=== PATIENT | male | born 1960 | race Caucasian/White ===

== ENCOUNTER 2021-04-01 05:39 | Observation (INO) ==
[2021-04-01] MEDS ORDERED: ACETAMINOPHEN 500 MG TABLET PO ONE (06:48)
[2021-04-01] MEDS ORDERED: ALBUTEROL 2.5 MG/3 ML NEB RESP TX ONE (06:48)
[2021-04-01] MEDS ORDERED: DIAZEPAM 5 MG TABLET PO ONE (06:48)
[2021-04-01] MEDS ORDERED: GABAPENTIN 400 MG CAPSULE PO ONE (06:48)
[2021-04-01] MEDS ORDERED: FAMOTIDINE 20 MG TABLET PO ONE (06:48)
[2021-04-01] MEDS ORDERED: LACTATED RINGERS 1,000 ML IV SCH (07:00)
[2021-04-01] MEDS ORDERED: LIDOCAINE 2% 5 ML VIAL ONE (07:10)
[2021-04-01] MEDS ORDERED: MIDAZOLAM 2 MG/2 ML VIAL ONE ×2 (07:10→07:44)
[2021-04-01] MEDS ORDERED: propofoL 200 MG/20 ML VIAL IV ONE (07:10)
[2021-04-01] MEDS ORDERED: ETOMIDATE 40 MG/20 ML VIAL IV ONE (07:10)
[2021-04-01] MEDS ORDERED: BUPIVACAINE SPINAL 0.75% 2 ML AMP SPINAL ONE (07:10)
[2021-04-01] MEDS ORDERED: ONDANSETRON 4 MG/2 ML VIAL ONE (07:10)
[2021-04-01] MEDS ORDERED: fentaNYL 100 MCG/2 ML VIAL ONE ×2 (07:10→09:13)
[2021-04-01] MEDS ORDERED: PHENYLEPHRINE 1 MG/10 ML SYRINGE IV ONE (07:12)
[2021-04-01] MEDS ORDERED: TRANEXAMIC ACID 1,000 MG/10 ML VIAL ONE (07:12)
[2021-04-01] MEDS ORDERED: DEXAMETHASONE 4 MG/1 ML VIAL ONE (07:22)
[2021-04-01] MEDS ORDERED: ROPIVACAINE 0.5% 30 ML VIAL ONE (07:22)
[2021-04-01] MEDS ORDERED: LIDOCAINE 1% 5 ML VIAL ONE (07:22)
[2021-04-01 07:25] LABS: Partial Thromboplastin Time 25.6 SECS (23.8-32.1)
[2021-04-01] MEDS ORDERED: BACITRACIN OINT 0.9 GM PACK TOP ONE (07:26)
[2021-04-01] MEDS ORDERED: VANCOMYCIN INJ 1,000 MG in SODIUM CHLORIDE 0.9% 250 ML IV ONE (08:11)
[2021-04-01] MEDS ORDERED: ALBUTEROL INHALER 18 GM INH ONE (08:32)
[2021-04-01] MEDS ORDERED: SEVOFLURANE 1 UNIT/15 MINUTE INH ONE (09:11)
[2021-04-01] MEDS ORDERED: SUCCINYLCHOLINE 200 MG/10 ML VIAL ONE (09:11)
[2021-04-01] MEDS ORDERED: ROCURONIUM 50 MG/5 ML VIAL IV ONE (09:11)
[2021-04-01] MEDS ORDERED: SODIUM CHLORIDE 0.9% 100 ML IV ONE (09:12)
[2021-04-01] MEDS ORDERED: SUGAMMADEX 200 MG/2 ML VIAL IV ONE (09:36)
[2021-04-01] MEDS ORDERED: ALBUTEROL 2.5 MG/3 ML NEB RESP TX PRN (09:54)
[2021-04-01] MEDS ORDERED: ALBUTEROL/IPRATROPIUM 3 ML NEB RESP TX PRN (09:54)
[2021-04-01] MEDS ORDERED: NITROGLYCERIN SL 0.4 MG TABLET SL PRN (09:54)
[2021-04-01] MEDS ORDERED: diphenhydrAMINE CAP 25 MG CAPSULE PO PRN (09:56)
[2021-04-01] MEDS ORDERED: HYDROmorphone 2 MG/1 ML VIAL IV PRN ×2 (09:56)
[2021-04-01] MEDS ORDERED: MAGNESIUM HYDROXIDE SUSP 30 ML UDCUP PO PRN (09:56)
[2021-04-01] MEDS ORDERED: ONDANSETRON 4 MG/2 ML VIAL IV PRN ×2 (09:56→12:24)
[2021-04-01] MEDS: KETOROLAC 30 MG/1 ML VIAL IV SCH ×3 (10:39→21:34)
[2021-04-01] MEDS: HYDROmorphone 2 MG/1 ML VIAL IV PRN ×2 (12:15→12:35)
[2021-04-01] MEDS: LACTATED RINGERS 1,000 ML IV SCH ×2 (12:16→17:44)
[2021-04-01] MEDS ORDERED: MEPERIDINE 25 MG/1 ML VIAL ONE (13:10)
[2021-04-01] MEDS ORDERED: MEPERIDINE 25 MG/1 ML VIAL IV PRN (13:13)
[2021-04-01] MEDS: ceFAZolin 2,000 MG/50 ML DUPLEX IV SCH (16:19)
[2021-04-01] MEDS: MORPHINE ER 15 MG TABLET PO SCH (21:26)
[2021-04-01] MEDS: DOCUSATE SODIUM 100 MG CAPSULE PO SCH (21:27)
[2021-04-01] MEDS: BUDESONIDE/FORMOTEROL 160-4.5 INHALER 6 GM INH SCH (21:39)
[2021-04-02] MEDS: ceFAZolin 2,000 MG/50 ML DUPLEX IV SCH (01:24)
[2021-04-02] MEDS: KETOROLAC 30 MG/1 ML VIAL IV SCH (04:02)
[2021-04-02] MEDS: LACTATED RINGERS 1,000 ML IV SCH (05:51)
[2021-04-02 06:24] LABS: Basophils % 0.2 % (0.0-0.8); Eosinophils % 0.1 % (0.00-10.9); Hematocrit 42.1 VOL% (42.0-52.0); Hemoglobin 13.6 GM/DL (14.0-18.0); Immature Granulocytes % 0.4 %; Immature Granulocytes Absolute 0.04 #; Lymphocytes # 1.6 10*3/uL (1.4-4.0); Lymphocytes % 15.2 % (21.2-54.2); Mean Corpuscular HGB Conc 32.3 GM/DL (32-36); Mean Platelet Volume 10.5 FL (9.6-12.0); Monocytes % 8.9 % (1.7-12.7); Neutrophils % 75.2 % (38.7-73.9); Platelet Count 221 T/CUMM (130-400); Red Blood Count 4.43 MC/CUMM (3.8-5.5); Red Cell Distribution Width 12.5 % (9.3-17.3); White Blood Count 10.7 T/CUMM (4-12)
[2021-04-02 06:49] LABS: Calcium 8.8 MG/DL (8.5-10.1); Osmolality,Calculated 281.7 MOS/KG (273-304); Potassium 4.7 MMOL/L (3.5-5.1)
[2021-04-02] MEDS: BUDESONIDE/FORMOTEROL 160-4.5 INHALER 6 GM INH SCH ×2 (08:27→21:10)
[2021-04-02] MEDS: lisinopriL 20 MG TABLET PO SCH (08:28)
[2021-04-02] MEDS: PANTOPRAZOLE 40 MG TABLET PO SCH (08:28)
[2021-04-02] MEDS: METOPROLOL TARTRATE 50 MG TABLET PO SCH (08:28)
[2021-04-02] MEDS: ASPIRIN EC 81 MG TABLET PO SCH (08:28)
[2021-04-02] MEDS: MORPHINE ER 15 MG TABLET PO SCH ×2 (08:28→21:06)
[2021-04-02] MEDS: TICAGRELOR 90 MG TABLET PO SCH ×2 (08:28→21:06)
[2021-04-02] MEDS: DOCUSATE SODIUM 100 MG CAPSULE PO SCH ×2 (08:28→21:06)
[2021-04-02] MEDS: TIOTROPIUM OLODATEROL INH SCH (10:10)
[2021-04-02] MEDS ORDERED: SIMVASTATIN 20 MG TABLET PO SCH (21:00)
[2021-04-03 05:31] LABS: Basophils % 0.2 % (0.0-0.8); Eosinophils # 0.1 10*3/uL (0.0-0.87); Eosinophils % 0.8 % (0.00-10.9); Hematocrit 41.8 VOL% (42.0-52.0); Hemoglobin 13.5 GM/DL (14.0-18.0); Immature Granulocytes % 0.2 %; Immature Granulocytes Absolute 0.02 #; Lymphocytes # 3.1 10*3/uL (1.4-4.0); Lymphocytes % 27.5 % (21.2-54.2); Mean Corpuscular HGB Conc 32.3 GM/DL (32-36); Mean Corpuscular Volume 94.1 FL (87-102); Mean Platelet Volume 10.3 FL (9.6-12.0); Monocytes % 11.5 % (1.7-12.7); Neutrophils % 59.8 % (38.7-73.9); Platelet Count 218 T/CUMM (130-400); Red Blood Count 4.44 MC/CUMM (3.8-5.5); Red Cell Distribution Width 12.5 % (9.3-17.3); White Blood Count 11.4 T/CUMM (4-12)
[2021-04-03] MEDS: ASPIRIN EC 81 MG TABLET PO SCH (08:18)
[2021-04-03] MEDS: METOPROLOL TARTRATE 50 MG TABLET PO SCH (08:19)
[2021-04-03] MEDS: MORPHINE ER 15 MG TABLET PO SCH (08:19)
[2021-04-03] MEDS: lisinopriL 20 MG TABLET PO SCH (08:19)
[2021-04-03] MEDS: PANTOPRAZOLE 40 MG TABLET PO SCH (08:19)
[2021-04-03] MEDS: DOCUSATE SODIUM 100 MG CAPSULE PO SCH (08:19)
[2021-04-03] MEDS: TICAGRELOR 90 MG TABLET PO SCH (08:19)
[2021-04-03] MEDS: TIOTROPIUM OLODATEROL INH SCH (08:20)
[2021-04-03] MEDS: BUDESONIDE/FORMOTEROL 160-4.5 INHALER 6 GM INH SCH (08:20)
[2021-04-03 11:48] VITALS: BP 136/73
== END 2021-04-03 15:55 | disposition home health service (06) ==
LOC: N.SDSINP 05:39 → N.OR 05:39 → N.SDSINP 05:41 → N.3E 17:22
PROVIDERS: ADMIT Orthopaedic Surgery; ATTEND Orthopaedic Surgery